=== PATIENT | male | born 1960 | race Caucasian/White ===

== ENCOUNTER 2019-01-08 02:53 | Inpatient (IN) | payer OTHER ==
[2019-01-08] MEDS ORDERED: DOCUSATE SODIUM 100 MG CAP PO (04:00)
[2019-01-08] MEDS ORDERED: ONDANSETRON 4 MG INJ IV (04:00)
[2019-01-08] MEDS ORDERED: BISACODYL (EC) 5 MG TAB PO (04:00)
[2019-01-08] MEDS ORDERED: morphine 2 MG INJ IV (04:00)
[2019-01-08] MEDS ORDERED: NACL 0.9% 3 ML SYG IV (04:00)
[2019-01-08] MEDS ORDERED: ACETAMINOPHEN 325 MG TAB PO (04:00)
[2019-01-08] MEDS ORDERED: DEXTROSE 50% 50 ML SYRINGE IV ×2 (04:30)
[2019-01-08] MEDS ORDERED: GLUCAGON 1 MG INJ IM (04:30)
[2019-01-08] MEDS ORDERED: GLUCOSE GEL 15 GRAM TUBE PO ×2 (04:30)
[2019-01-08] MEDS ORDERED: GLUCOSE GEL 15 GRAM TUBE BUCCAL (04:30)
[2019-01-08] MEDS: INSULIN GLARGINE [LANTus] (100 UNITS/ML) SYG SC (04:54)
[2019-01-08 05:24] LABS: ADD MAN DIFF? NO
[2019-01-08] MEDS: INSULIN ASPART [NOVOLOG] 3 ML PEN SC ×6 (05:24→20:57)
[2019-01-08 05:27] LABS: HAAIG REFLEX REFLEX FILED
[2019-01-08] MEDS: ACCU-CHEK XX (05:27)
[2019-01-08] MEDS: FUROSEMIDE 40 MG INJ IV ×2 (05:34→18:28)
[2019-01-08 05:56] LABS: HEMOGLOBIN A1C 9.8 % (0-5.9)
[2019-01-08 06:03] LABS: WHITE BLOOD COUNT 5.4 10^3/ul (4.8-10.8)
[2019-01-08 06:03] LABS: ABNORMAL IP MESSAGE 1; BASOPHILS % 0.4 % (0.0-2.0); EOSINOPHILS % 0.7 % (0.0-7.0); HEMATOCRIT 37.4 % (42.0-52.0); HEMOGLOBIN 12.7 g/dl (14.0-18.0); LYMPHOCYTES # 0.7 10^3/ul (0.8-2.9); LYMPHOCYTES % 13.8 % (15.0-51.0); MEAN CORPUSCULAR HEMOGLOBIN 32.6 pg (29.0-33.0); MEAN CORPUSCULAR VOLUME 96.1 fl (82.0-101.0); MEAN PLATELET VOLUME 10.4 fl (7.4-10.4); MONOCYTE # 0.7 10^3/ul (0.3-0.9); MONOCYTES % 12.5 % (0.0-11.0); NEUTROPHIL # 3.9 10^3/ul (1.6-7.5); PLATELET COUNT 64 10^3/UL (140-415); POSITIVE DIFF @See below; RED BLOOD COUNT 3.89 10^6/ul (4.70-6.10); RED CELL DISTRIBUTION WIDTH 14.6 % (11.5-14.5)
[2019-01-08 06:06] LABS: PROTIME 18.2 Sec (11.9-14.9); PT RATIO 1.4
[2019-01-08 06:07] LABS: PARTIAL THROMBOPLASTIN TIME 36.4 Sec (23.0-35.0)
[2019-01-08 06:18] LABS: ETHANOL < 10.0 mg/dl (0-0)
[2019-01-08 06:32] LABS: ALANINE AMINOTRANSFERASE 30 IU/L (13-69); ALBUMIN 2.2 g/dl (3.3-4.9); ALBUMIN/GLOBULIN RATIO 0.47; ALKALINE PHOSPHATASE 496 IU/L (42-121); ANION GAP 5 (5-13); ASPARTATE AMINO TRANSFERASE 39 IU/L (15-46); BILIRUBIN,INDIRECT 1.4 mg/dl (0-1.1); BILIRUBIN,TOTAL 1.4 mg/dl (0.2-1.3); BLOOD UREA NITROGEN 16 mg/dl (7-20); CALCIUM 8.1 mg/dl (8.4-10.2); CARBON DIOXIDE 28 mmol/L (21-31); CHLORIDE 99 mmol/L (97-110); CHOL/HDL RATIO 11.1 RATIO; CHOLESTEROL 201 mg/dl (100-200); CREATININE 0.81 mg/dl (0.61-1.24); Estimated GFR > 60 mL/min (>60); GLUCOSE 353 mg/dl (70-220); HDL CHOLESTEROL 18 mg/dl (28-71); LDL CHOLESTEROL,CALCULATED 137 mg/dl; MAGNESIUM 1.7 mg/dl (1.7-2.5); SODIUM 132 mmol/L (135-144); TOTAL PROTEIN 6.8 g/dl (6.1-8.1); TRIGLYCERIDES 231 mg/dl (0-149)
[2019-01-08] MEDS: ALBUMIN HUMAN 25% 100 ML IV ×2 (06:38→08:24)
[2019-01-08 08:35] LABS: HEPATITIS B SURFACE ANTIGEN NEGATIVE (NEGATIVE)
[2019-01-08 08:52] LABS: HEPATITIS B CORE ANTIBODY NEGATIVE (NEGATIVE); HEPATITIS C VIRAL ANTIBODY NEGATIVE (NEGATIVE)
[2019-01-08 08:53] LABS: HEPATITIS B SURFACE ANTIBODY NEGATIVE (NEGATIVE)
[2019-01-08] MEDS: LIDOCAINE 1% (MPF) 5 ML VIAL (18:15)
[2019-01-08 18:43] LABS: FLD MN% 35.5 %; FLD PMN% 64.5 %; FLD RBC 0 /uL; FLD WBC 270 /cmm
[2019-01-08 19:00] LABS: FLUID GLUCOSE 260 mg/dl; FLUID TOTAL PROTEIN < 2.0 g/dl; FLUID TYPE PARACENTESIS FLUID
[2019-01-08 20:18] LABS: FLD TYPE PARACENTHESIS
[2019-01-08 20:18] LABS: FLD CLARITY SLIGHTLY HAZY; FLD COLOR YELLOW
[2019-01-08] MEDS: FISH OIL 1,000 MG CAP PO (20:54)
[2019-01-08] MEDS: SPIRONOLACTONE 25 MG TAB PO (20:54)
[2019-01-09] MEDS: ACCU-CHEK XX (02:23)
[2019-01-09] MEDS: FUROSEMIDE 40 MG INJ IV (05:33)
[2019-01-09 06:44] LABS: ADD MAN DIFF? NO
[2019-01-09 06:54] LABS: WHITE BLOOD COUNT 6.1 10^3/ul (4.8-10.8)
[2019-01-09 06:54] LABS: ABNORMAL IP MESSAGE 1; BASOPHILS % 0.3 % (0.0-2.0); EOSINOPHILS # 0.1 10^3/ul (0.0-0.5); EOSINOPHILS % 1.6 % (0.0-7.0); HEMATOCRIT 34.4 % (42.0-52.0); HEMOGLOBIN 11.9 g/dl (14.0-18.0); LYMPHOCYTES # 1.8 10^3/ul (0.8-2.9); LYMPHOCYTES % 29.2 % (15.0-51.0); MEAN CORPUSCULAR HEMOGLOBIN 33.2 pg (29.0-33.0); MEAN CORPUSCULAR HGB CONC 34.6 g/dl (32.0-37.0); MEAN CORPUSCULAR VOLUME 96.1 fl (82.0-101.0); MEAN PLATELET VOLUME 10.3 fl (7.4-10.4); MONOCYTE # 0.8 10^3/ul (0.3-0.9); MONOCYTES % 12.7 % (0.0-11.0); NEUTROPHIL # 3.4 10^3/ul (1.6-7.5); NEUTROPHILS % 55.9 % (39.0-77.0); PLATELET COUNT 63 10^3/UL (140-415); POSITIVE DIFF @See below; RED BLOOD COUNT 3.58 10^6/ul (4.70-6.10); RED CELL DISTRIBUTION WIDTH 14.6 % (11.5-14.5)
[2019-01-09 07:12] LABS: MAGNESIUM 1.4 mg/dl (1.7-2.5)
[2019-01-09 07:18] LABS: ALANINE AMINOTRANSFERASE 30 IU/L (13-69); ALBUMIN 2.1 g/dl (3.3-4.9); ALBUMIN/GLOBULIN RATIO 0.52; ALKALINE PHOSPHATASE 239 IU/L (42-121); ANION GAP 2 (5-13); ASPARTATE AMINO TRANSFERASE 37 IU/L (15-46); BILIRUBIN,INDIRECT 2.1 mg/dl (0-1.1); BILIRUBIN,TOTAL 2.1 mg/dl (0.2-1.3); BLOOD UREA NITROGEN 12 mg/dl (7-20); CALCIUM 8.1 mg/dl (8.4-10.2); CARBON DIOXIDE 32 mmol/L (21-31); CHLORIDE 100 mmol/L (97-110); CREATININE 0.63 mg/dl (0.61-1.24); Estimated GFR > 60 mL/min (>60); GLUCOSE 187 mg/dl (70-220); POTASSIUM 3.4 mmol/L (3.5-5.1); SODIUM 134 mmol/L (135-144); TOTAL PROTEIN 6.1 g/dl (6.1-8.1)
[2019-01-09] MEDS: SPIRONOLACTONE 25 MG TAB PO (08:17)
[2019-01-09] MEDS: FISH OIL 1,000 MG CAP PO (08:17)
[2019-01-09] MEDS: INSULIN ASPART [NOVOLOG] 3 ML PEN SC ×4 (08:19→12:32)
[2019-01-09] MEDS: INSULIN GLARGINE [LANTus] (100 UNITS/ML) SYG SC (08:21)
[2019-01-09] MEDS ORDERED: SPIRONOLACTONE 50 MG TAB PO (21:00)
[2019-01-10] MEDS ORDERED: FUROSEMIDE 40 MG TAB PO (09:00)
== END 2019-01-09 18:00 | disposition home or self-care (01) | DRG 433 ==
LOC: PP2 02:53
PROC: 0W9G3ZX Drainage of Peritoneal Cavity, Percutaneous Approach, Diagnostic (ICD-10-PCS; principal; 2019-01-08)
DX: K70.31 Alcoholic cirrhosis of liver with ascites (principal); E87.1 Hypo-osmolality and hyponatremia; D68.8 Other specified coagulation defects; D69.59 Other secondary thrombocytopenia; E11.65 Type 2 diabetes mellitus with hyperglycemia; D64.9 Anemia, unspecified; E88.09 Other disorders of plasma-protein metabolism, not elsewhere classified; E80.6 Other disorders of bilirubin metabolism; F10.21 Alcohol dependence, in remission; Y90.0 Blood alcohol level of less than 20 mg/100 ml; Z79.4 Long term (current) use of insulin
CPT/HCPCS: 74181; 76705; 80053; 80061; 80307; 82042; 82306; 82945; 82962; 83036; 83735; 84157; 84443; 85025; 85610; 85730; 86704; 86706; 86708; 86709; 86803; 87070; 87102; 87116; 87340; 88104; 88305; 89051; 93306; 93970